=== PATIENT | female | born 1985 | race Caucasian/White ===

== ENCOUNTER 2024-07-18 20:49 | Emergency (ER) | payer OTHER, SELFPAY ==
[2024-07-18 20:53] VITALS: BP 127/83
[2024-07-18 21:26] LABS: % Basophils 0.9 % (0-2); % Eosinophils 2.8 % (0-6); % Immature Granulocytes 0.4 % (0-0.5); % Lymphocytes 25.3 % (20.5-51.1); % Monocytes 5.5 % (1.7-9.3); % Neutrophils 65.1 % (42.2-75.2); Absolute Basophils 0.1 10^3/uL (0-0.2); Absolute Eosinophils 0.3 10^3/uL (0-0.7); Absolute Lymphocytes 2.3 10^3/uL (1.2-3.4); Absolute Monocytes 0.5 10^3/uL (0.1-0.6); Absolute Neutrophils 5.8 10^3/uL (1.4-6.5); Hematocrit 38.9 % (37.0-47.0); Hemoglobin 13.3 g/dL (12.0-16.0); Mean Corp Hgb Conc. 34.2 g/dL (33.0-37.0); Mean Corpuscular Hgb 31.4 pg (27.0-31.0); Mean Corpuscular Volume 91.7 fL (81.0-99.0); Mean Platelet Volume 11.1 fL (7.4-10.4); Nucleated Red Blood Cells % 0 %; Platelet Count 218 10^3/uL (130-400); Red Blood Cell Count 4.24 10^6/uL (4.20-5.40); Red Cell Dist. Width 12.7 % (11.5-14.5); White Blood Cell Count 8.9 10^3/uL (4.8-10.8)
[2024-07-18 21:26] LABS: Urine Albumin Negative (Neg - Trace); Urine Bilirubin Negative (Negative); Urine Character Clear (Clear); Urine Color Yellow; Urine Glucose Negative (Negative); Urine Ketone Negative (Negative); Urine Leukocyte Negative (Negative); Urine Nitrite Negative (Negative); Urine Occult Blood Negative (Negative); Urine Specific Gravity 1.025 (<1.030); Urine Urobilinogen Negative (Neg - 1+)
[2024-07-18 21:42] LABS: ALT (SGPT) 15 U/L (0-35); AST (SGOT) 17 U/L (14-36); Albumin 4.4 g/dl (3.5-5.0); Alkaline Phosphatase 88 U/L (38-126); Blood Urea Nitrogen 9 mg/dl (7-17); Calcium 9.6 mg/dl (8.4-10.2); Carbon Dioxide 26 mmol/L (22-30); Chloride 106 mmol/L (98-107); Glucose 97 mg/dl (70-99); Potassium 4.2 mmol/L (3.5-5.1); Sodium 142 mmol/L (135-145); Total Bilirubin 0.3 mg/dl (0.2-1.3); Total Protein 6.8 g/dl (6.3-8.2); eGFR > 60.00
--- NOTE | 2024-07-18 22:58 | ED.GENMED ---
History of Present Illness
General
Chief Complaint: Abdominal Pain
Source: patient
Exam Limitations: none
Time Seen by Provider: 07/18/24 22:43
History of Present Illness
History of Present Illness:
This is a 39 year old female that comes in with c/o abd pain. States that she has right lower abd pain that started 2 days ago. States that she also feels like something is pinching in the right thigh. States that at first it felt like someone was
grabbing her hip. States that she is occasionally SOB, has a headache, dizziness, and has been nauseated on and off. Denies any fever, chills, chest pain, vomiting, diarrhea, urinary burning.
Past History
Past History
ED Past Medical History: GERD and Psychiatric (Anxiety)
ED Past Surgical History: Gynecological (Ovarian cyst) and Tonsilectomy
Social History
Tobacco: Former smoker
Alcohol: None
Drug: None
Personal:
Living: with family
Employment: Employed
Review of Systems
Review of Systems
All Other Systems: ROS reviewed and negative except as documented in HPI and ROS
Constitutional: Reports no symptoms; Denies fever or chills
EENT: Reports no symptoms
Respiratory: Reports trouble breathing (Occasional); Denies cough
Cardiac: Reports no symptoms; Denies chest pain
ABD/GI: Reports abdominal pain and nausea (on and off); Denies vomiting or diarrhea
: Reports no symptoms; Denies dysuria, frequency or urgency
Musculoskeletal: Reports no symptoms
Skin: Reports no symptoms
Neurological: Reports dizzy and headache
Psychiatric: Reports no symptoms
Phy Exam
General Physical Exam
General Presentation: well appearing and no apparent distress
General age: appears stated age
General Skin: warm and dry
General Habitus: normal
General Mental: alert
General Hydration: dry mucous membranes
ENT Exam
ENT Exam: TM's normal, pharynx normal and neck supple
Eye Exam
Eye Exam: EOMI
Cardiovascular Exam
Cardiovascular Exam: regular rate/rhythm, no edema, no murmur and normal peripheral pulses
Pulmonary Exam
Pulmonary Exam: lungs clear, no respiratory distress, no rales, chest non tender, no crackles, no rhonchi, no wheezing and no cough
Gastrointestinal Exam
Gastrointestinal Exam: normal bowel sounds, soft, no organomegaly, no pulsatile mass, non distended, tender (Right lower abd tenderness with palpation) and other (Obese)
Musculoskeletal Exam
Musculoskeletal Exam: full ROM and no edema
Skin Exam
Skin Exam: normal color, warm/dry, no rash, no petechia and other (Negative for any redness or swelling or the right leg)
Psychiatric Exam
Psychiatric Exam: normal mood/affect
Course
Orders/Labs/Results
Orders:
Orders
07/18/24 21:11
Complete Blood Count/With Diff Urgent
Comprehensive Metabolic Panel Urgent
HCG, Serum Qualitative Screen Urgent
Comment: ADD ON
07/18/24 21:16
UA Reflex to Culture [Urinalysis Reflex To Culture] Urgent
Date Specimen was Collected: 07/18/24
Time Specimen was Collected: 21:01
07/18/24 23:01
0.9% Sodium Chloride 500 ml [Nss] 500 ml IV BOLUS
07/18/24 23:02
Add On- LAB Urgent
Tests Added?: HCG
07/18/24 23:04
Add On- LAB Urgent
Tests Added?: HCG
07/19/24 00:05
CT Abd/pelvis W Iv Cont Urgent
Reason For Exam: Right sided abd pain
07/19/24 22:58
US Periph Venous LOWER Ext RT Urgent
Reason For Exam: Discomfort on the right medial thigh
07/19/24 23:02
US Pelvis Only (non-obstetric) Urgent
Reason For Exam: Right sided abd pain
Abnormal Lab Results
07/18/24
21:11
MCH 31.4 H pg
(27.0-31.0)
MPV 11.1 H fL
(7.4-10.4)
07/18/24 21:11
07/18/24 21:11
Labs unremarkable. Urine negative for infection or blood
Vital Signs
Initial and Last Documented VS:
Initial Vital Signs
Temp Pulse Resp BP Pulse Ox
97.6 F 76 16 127/83 97
07/18/24 20:53 07/18/24 20:53 07/18/24 20:53 07/18/24 20:53 07/18/24 20:53
Last Documented Vital Signs
Temp Pulse Resp BP Pulse Ox
97.6 F 76 16 127/83 97
07/18/24 20:53 07/18/24 20:53 07/18/24 20:53 07/18/24 20:53 07/18/24 20:53
MDM/Problems Addressed
Differential Diagnosis Includes:
Ovarian cyst, Appendicitis, Musculoskeletal
MDM/Problems Addressed:
This is a 39 year old female that comes in with c/o right sided lower abd pain. States that this started 2 days ago.
Will check labs. Urine, Pelvic ultrasound and CT abd. Will also give IV fluids.
Back into see patient. Explained that her US is negative for DVT. US of the pelvis is negative for any torsion or free fluid. CT of the abd/pelvis shows Cystitis but there is no other acute process. Explained to patient that she should stay away
from Caffeine as this is irritating to the bladder lining. She may also have pulled a groin muscle that may be causing her pain. Patient to follow up with the family doctor. Increase her water intake to 8-8oz glasses daily. Tylenol as needed for any
pain. Return with any concerns.
Chronic conditions affecting care:
NA
Acute Exacerbation and/or Progression of Chronic Illness:
NA
*Radiology
Radiology exam reviewed: radiology read reviewed (CT abd/pelvis night hawk- Mild bladder wall thickening, which may be due to cystitis. No hydronephrosis, nephrolithiasis or pyelonephritis. No bowel obstruction or inflammation. Appendix if normal.
NO free air or free fluid. Cholelithiasis. ) and other (US- No active torsion. No free fluid.. US- negative for DVT right leg)
*Pulse Oximetry
Patient hypoxic: no
*EKG
Interpreted by ED Provider?: NA
Rate: EKG- N/A
*Director Of Financial Planning Interpretation
Rate: Director Of Financial Planning- N/A
*Critical Care Note
Total Time (30-74mins, 75-104mins- exclusive of procedures): Not Applicable
ED Attending Note
-
Portions of this chart may have been created with voice recognition software.� Occasional wrong word or��sound alike� substitutions may have occurred due to the inherent limitations of voice recognition software.
Discharge Plan
Departure
Patient Disposition: Home (Routine Discharge)
Date of Disposition: 07/19/24
Time of Disposition: 02:43
Patient with high blood pressure during this ER visit?: No
Condition: Good
Covid-19: Not Applicable
Discharge Problem:
Cystitis
Instructions: Bladder Pain Syndrome (Interstitial Cystitis) (DC)
Prescriptions:
No Action
Zoloft
75 mg PO DAILY
Referrals:
Josefa Penn CRNP [Primary Care Provider] - Call in 1-3 days for appt
Activity Restrictions/Additional Instructions:
As discussed, your blood work is normal. Your Ultrasound of the pelvis is negative for any torsion or free fluid. Your Ultrasound of the right leg is negative for DVT and the CT scan of the abd/pelvis shows that you have Cystitis. Please stay away
from coffee or any Caffeine as this is irritating to the bladder lining and will continue to irritate the lining and cause pain. You may have also pulled a groin muscle that is causing your pain. Follow up with the family doctor for recheck. IF YOU
HAVE INCREASED OR CHANGING PAIN, OR YOU HAVE ANY OTHER CONCERNS PLEASE RETURN TO THE EMERGENCY ROOM.
Interventions
Interventions:
*Risk Screen - Suicide Last Done: 07/18/24 20:53
*General Assessment Last Done: 07/18/24 20:53
*Neglect/Abuse Screening Last Done: 07/18/24 20:53
ED- Fall Risk Assessment Last Done: 07/18/24 22:54
*ED COVID-19 Vaccine History Last Done: 07/18/24 20:53
PD-Stnblm-Jjgeocuyhw Assessment Last Done: 07/18/24 22:54
Discharge Date and Time
Print Language: TANZANIAN
[2024-07-18 22:59] VITALS: BMI 44.7
[2024-07-18 23:14] VITALS: BP 112/70
[2024-07-18] MEDS: NSS 500 IV (23:18)
[2024-07-18 23:31] LABS: HCG, Serum Qualitative Screen Negative
[2024-07-19 01:12] VITALS: BP 123/71
[2024-07-19 02:09] VITALS: BP 115/72
[2024-07-19 02:52] VITALS: BP 109/67
== END 2024-07-19 02:55 | disposition home or self-care (01) ==
LOC: EMR 20:49
PROVIDERS: Emergency Medicine; EMERGENCY PHYSICIAN Student in an Organized Health Care Education/Training Program; PRIMARYCARE PHYSICIAN Nurse Practitioner Family
DX: N30.90 Cystitis, unspecified without hematuria (principal); K21.9 Gastro-esophageal reflux disease without esophagitis; Z87.891 Personal history of nicotine dependence
CPT/HCPCS: 96360; 99284; 74177; 76856; 80053; 81003; 84703; 85025; 93971; Q9967

== ENCOUNTER → 2024-10-29 11:15 | Outpatient (REF) | payer OTHER, SELFPAY | LOC: PNTC 11:15 | PROVIDERS: ATTENDING PHYSICIAN Obstetrics & Gynecology | DX: O99.210 Obesity complicating pregnancy, unspecified trimester (principal); O09.529 Supervision of elderly multigravida, unspecified trimester | CPT/HCPCS: 76801; 76813 ==

== ENCOUNTER → 2024-11-20 11:40 | Outpatient (REF) | payer OTHER, SELFPAY | LOC: PNTC 11:40 | PROVIDERS: ATTENDING PHYSICIAN Obstetrics & Gynecology | DX: O99.212 Obesity complicating pregnancy, second trimester (principal); O09.522 Supervision of elderly multigravida, second trimester | CPT/HCPCS: 36415; 76805 ==

== ENCOUNTER → 2024-12-18 15:10 | Outpatient (REF) | payer OTHER, SELFPAY | LOC: PNTC 15:10 | PROVIDERS: ATTENDING PHYSICIAN Obstetrics & Gynecology | DX: O99.210 Obesity complicating pregnancy, unspecified trimester (principal); O09.529 Supervision of elderly multigravida, unspecified trimester | CPT/HCPCS: 76811; 76817 ==

== ENCOUNTER → 2025-01-02 15:02 | Outpatient (REF) | payer OTHER, SELFPAY | LOC: PNTC 15:02 | PROVIDERS: ATTENDING PHYSICIAN Student in an Organized Health Care Education/Training Program | DX: O99.210 Obesity complicating pregnancy, unspecified trimester (principal); O09.529 Supervision of elderly multigravida, unspecified trimester; O99.320 Drug use complicating pregnancy, unspecified trimester | CPT/HCPCS: 76815 ==

== ENCOUNTER → 2025-01-15 15:00 | Outpatient (REF) | payer OTHER, SELFPAY | LOC: PNTC 15:00 | PROVIDERS: ATTENDING PHYSICIAN Student in an Organized Health Care Education/Training Program | DX: O99.210 Obesity complicating pregnancy, unspecified trimester (principal); O09.529 Supervision of elderly multigravida, unspecified trimester; O35.8XX0 Maternal care for other (suspected) fetal abnormality and damage, not applicable or unspecified; O99.320 Drug use complicating pregnancy, unspecified trimester | CPT/HCPCS: 76816 ==

== ENCOUNTER → 2025-02-10 16:01 | Outpatient (REF) | payer OTHER, SELFPAY | LOC: PNTC 16:01 | PROVIDERS: ATTENDING PHYSICIAN Student in an Organized Health Care Education/Training Program | DX: O09.529 Supervision of elderly multigravida, unspecified trimester (principal); O99.210 Obesity complicating pregnancy, unspecified trimester | CPT/HCPCS: 76816 ==

== ENCOUNTER 2025-02-21 18:29 | Observation (INO) | payer OTHER, SELFPAY ==
[2025-02-21 18:42] VITALS: BP 121/86; BMI 44.9
[2025-02-21 19:03] LABS: Urine Albumin 1+ (Neg - Trace); Urine Bilirubin Negative (Negative); Urine Character Clear (Clear); Urine Color Yellow; Urine Glucose Negative (Negative); Urine Ketone Negative (Negative); Urine Leukocyte 2+ (Negative); Urine Nitrite Negative (Negative); Urine Occult Blood Negative (Negative); Urine Specific Gravity 1.015 (<1.030); Urine Urobilinogen Negative (Neg - 1+)
[2025-02-21 19:18] LABS: Urine Amorphous Seen
[2025-02-21 19:19] LABS: Urine Red Blood Cell 0-2 /HPF (0-2)
[2025-02-21 19:20] LABS: Urine Bacteria Few (Negative)
== END 2025-02-21 20:07 | disposition home or self-care (01) ==
LOC: LDRP 18:29
PROVIDERS: ADMITTING PHYSICIAN Obstetrics & Gynecology
DX: O26.893 Other specified pregnancy related conditions, third trimester (principal); Z3A.29 29 weeks gestation of pregnancy; R10.9 Unspecified abdominal pain; M25.552 Pain in left hip; M25.551 Pain in right hip; O99.343 Other mental disorders complicating pregnancy, third trimester; F32.A Depression, unspecified; F41.9 Anxiety disorder, unspecified; O09.523 Supervision of elderly multigravida, third trimester; O99.213 Obesity complicating pregnancy, third trimester; Z91.040 Latex allergy status; Z86.14 Personal history of Methicillin resistant Staphylococcus aureus infection
CPT/HCPCS: 59899; 81003; 81015; G0378

== ENCOUNTER → 2025-03-10 13:46 | Outpatient (REF) | payer OTHER, SELFPAY | LOC: PNTC 13:46 | PROVIDERS: ATTENDING PHYSICIAN Student in an Organized Health Care Education/Training Program | DX: O09.529 Supervision of elderly multigravida, unspecified trimester (principal); O99.210 Obesity complicating pregnancy, unspecified trimester | CPT/HCPCS: 76816 ==

== ENCOUNTER 2025-03-21 14:24 | Observation (INO) | payer OTHER, SELFPAY ==
[2025-03-21 14:43] VITALS: BP 104/59; BMI 46.9
[2025-03-21] MEDS: TYLENOL #3 1 TABLET PO (15:08)
[2025-03-21 16:33] LABS: Hematocrit 34.2 % (37.0-47.0); Hemoglobin 11.9 g/dL (12.0-16.0); Mean Corp Hgb Conc. 34.8 g/dL (33.0-37.0); Mean Corpuscular Volume 95.0 fL (81.0-99.0); Platelet Count 218 10^3/uL (130-400); Red Cell Dist. Width 13.4 % (11.5-14.5)
[2025-03-21] MEDS: BENADRYL 50 MG IV (16:37)
[2025-03-21] MEDS: FLUSH (NSS) 1 FLUSH IV (16:38)
[2025-03-21 16:46] LABS: ALT (SGPT) 11 U/L (0-35); AST (SGOT) 14 U/L (14-36); Albumin 3.6 g/dl (3.5-5.0); Alkaline Phosphatase 112 U/L (38-126); Blood Urea Nitrogen 6 mg/dl (7-17); Calcium 9.2 mg/dl (8.4-10.2); Carbon Dioxide 18 mmol/L (22-30); Chloride 112 mmol/L (98-107); Estimated Creatinine Clearance > 125 ml/min; Glucose 104 mg/dl (70-99); Potassium 4.0 mmol/L (3.5-5.1); Sodium 136 mmol/L (135-145); Total Protein 6.1 g/dl (6.3-8.2); eGFR > 60.00
== END 2025-03-22 00:48 | disposition home or self-care (01) ==
LOC: LDRP 14:24
PROVIDERS: ADMITTING PHYSICIAN Student in an Organized Health Care Education/Training Program
DX: O99.353 Diseases of the nervous system complicating pregnancy, third trimester (principal); G43.909 Migraine, unspecified, not intractable, without status migrainosus; Z3A.33 33 weeks gestation of pregnancy
CPT/HCPCS: 80053; 82570; 84156; 85027; G0378

== ENCOUNTER 2025-03-26 18:51 | Observation (INO) | payer OTHER, SELFPAY ==
[2025-03-26 19:06] VITALS: BMI 45.8
[2025-03-26 19:17] VITALS: BP 113/54
== END 2025-03-26 20:25 | disposition home or self-care (01) ==
LOC: LDRP 18:51
PROVIDERS: ADMITTING PHYSICIAN Obstetrics & Gynecology
DX: O36.8130 Decreased fetal movements, third trimester, not applicable or unspecified (principal); O99.343 Other mental disorders complicating pregnancy, third trimester; F41.9 Anxiety disorder, unspecified; F32.A Depression, unspecified; Z3A.34 34 weeks gestation of pregnancy
CPT/HCPCS: G0378

== ENCOUNTER → 2025-03-27 14:20 | Outpatient (REF) | payer OTHER, SELFPAY | LOC: PNTC 14:20 | PROVIDERS: ATTENDING PHYSICIAN Student in an Organized Health Care Education/Training Program | DX: O99.210 Obesity complicating pregnancy, unspecified trimester (principal); O09.529 Supervision of elderly multigravida, unspecified trimester | CPT/HCPCS: 59025 ==

== ENCOUNTER → 2025-04-03 13:44 | Outpatient (REF) | payer OTHER, SELFPAY | LOC: PNTC 13:44 | PROVIDERS: ATTENDING PHYSICIAN Student in an Organized Health Care Education/Training Program | DX: O99.210 Obesity complicating pregnancy, unspecified trimester (principal); O09.529 Supervision of elderly multigravida, unspecified trimester | CPT/HCPCS: 59025; 76816 ==

== ENCOUNTER → 2025-04-10 13:43 | Outpatient (REF) | payer OTHER, SELFPAY | LOC: PNTC 13:43 | PROVIDERS: ATTENDING PHYSICIAN Student in an Organized Health Care Education/Training Program | DX: O09.529 Supervision of elderly multigravida, unspecified trimester (principal); O99.210 Obesity complicating pregnancy, unspecified trimester | CPT/HCPCS: 59025; 76815 ==

== ENCOUNTER → 2025-04-17 13:54 | Outpatient (REF) | payer OTHER, SELFPAY | LOC: PNTC 13:54 | PROVIDERS: ATTENDING PHYSICIAN Student in an Organized Health Care Education/Training Program | DX: O09.529 Supervision of elderly multigravida, unspecified trimester (principal); O99.210 Obesity complicating pregnancy, unspecified trimester | CPT/HCPCS: 59025; 76815 ==

== ENCOUNTER 2025-04-23 16:44 | Observation (INO) | payer OTHER, SELFPAY ==
[2025-04-23 16:54] VITALS: BP 118/82; BMI 46.7
== END 2025-04-23 17:42 | disposition home or self-care (01) ==
LOC: LDRP 16:44
PROVIDERS: ADMITTING PHYSICIAN Student in an Organized Health Care Education/Training Program; FAMILY PHYSICIAN Obstetrics & Gynecology
DX: O36.8130 Decreased fetal movements, third trimester, not applicable or unspecified (principal); Z3A.38 38 weeks gestation of pregnancy; M54.9 Dorsalgia, unspecified; O09.523 Supervision of elderly multigravida, third trimester; O99.343 Other mental disorders complicating pregnancy, third trimester; M25.552 Pain in left hip; Z91.040 Latex allergy status; Z86.14 Personal history of Methicillin resistant Staphylococcus aureus infection; Z79.82 Long term (current) use of aspirin
CPT/HCPCS: 59025; G0378

== ENCOUNTER → 2025-04-24 13:41 | Outpatient (REF) | payer OTHER, SELFPAY | LOC: PNTC 13:41 | PROVIDERS: ATTENDING PHYSICIAN Student in an Organized Health Care Education/Training Program | DX: O09.529 Supervision of elderly multigravida, unspecified trimester (principal); O99.210 Obesity complicating pregnancy, unspecified trimester | CPT/HCPCS: 59025; 76815 ==

== ENCOUNTER → 2025-05-01 13:40 | Outpatient (REF) | payer OTHER, SELFPAY | LOC: PNTC 13:40 | PROVIDERS: ATTENDING PHYSICIAN Student in an Organized Health Care Education/Training Program | DX: O99.210 Obesity complicating pregnancy, unspecified trimester (principal); O09.529 Supervision of elderly multigravida, unspecified trimester | CPT/HCPCS: 59025; 76816 ==

== ENCOUNTER 2025-05-01 19:37 | Inpatient (IN) | payer OTHER, SELFPAY ==
[2025-05-01 19:57] VITALS: BP 128/82; BMI 43.0
[2025-05-01 20:04] LABS: Hematocrit 34.2 % (37.0-47.0); Hemoglobin 11.7 g/dL (12.0-16.0); Mean Corp Hgb Conc. 34.2 g/dL (33.0-37.0); Mean Corpuscular Volume 92.7 fL (81.0-99.0); Nucleated Red Blood Cells % 0 %; Platelet Count 245 10^3/uL (130-400); Red Cell Dist. Width 13.2 % (11.5-14.5)
[2025-05-01] MEDS: CYTOTEC 50 MICROGRAM VAG (20:13)
[2025-05-01] MEDS: LR 1000 IV (21:54)
[2025-05-01] MEDS: ZOLOFT 75 MG PO (21:57)
[2025-05-01] MEDS: STADOL 1 MG IV (22:09)
[2025-05-02] MEDS: STADOL 1 MG IV (00:59)
[2025-05-02] MEDS: TYLENOL 650 MG PO ×2 (03:19→20:01)
[2025-05-02] MEDS: ZOFRAN 4 MG IV (03:20)
[2025-05-02] MEDS: PENICILLIN 110 UNITS IV (09:50)
[2025-05-02] MEDS: PITOCIN 30 UNITS/NSS 500 ML IV (10:15)
[2025-05-02] MEDS: LR 1000 IV ×2 (11:37→21:38)
[2025-05-02] MEDS: PENICILLIN 55 UNITS IV ×3 (13:58→21:39)
[2025-05-02] MEDS: ZOLOFT 75 MG PO (20:01)
[2025-05-02] MEDS: SUBLIMAZE 100 MCG EPIDURAL (21:54)
[2025-05-02] MEDS: FENTANYL/BUPIVACAINE 100 EPIDURAL (21:54)
[2025-05-03] MEDS: PENICILLIN 55 UNITS IV ×2 (02:11→06:04)
[2025-05-03] MEDS: ZOFRAN 4 MG IV (04:26)
[2025-05-03] MEDS: FENTANYL/BUPIVACAINE 100 EPIDURAL (06:26)
[2025-05-03] MEDS: SILVER NITRATE APPLICATOR 1 EACH TOPICAL (08:50)
[2025-05-03] MEDS: PITOCIN 30 UNITS/NSS 500 ML IV (08:51)
[2025-05-03] MEDS: POLYSPORIN/DOUBLE ANTIBIOTIC 1 APPLIC TOPICAL ×2 (11:19→20:03)
[2025-05-03] MEDS: MOTRIN 600 MG PO ×2 (15:10→21:23)
[2025-05-03] MEDS: TYLENOL 650 MG PO ×2 (15:10→21:24)
[2025-05-03] MEDS: COLACE 100 MG PO (20:02)
[2025-05-03] MEDS: PRENATAL PLUS 1 TABLET PO (22:00)
[2025-05-03] MEDS: ZOLOFT 75 MG PO (22:00)
[2025-05-04] MEDS: TYLENOL 650 MG PO ×3 (03:59→19:37)
[2025-05-04] MEDS: MOTRIN 600 MG PO ×3 (03:59→19:37)
[2025-05-04 04:30] LABS: Hematocrit 36.0 % (37.0-47.0); Hemoglobin 12.2 g/dL (12.0-16.0)
[2025-05-04] MEDS: COLACE 100 MG PO ×2 (08:38→19:37)
[2025-05-04] MEDS: POLYSPORIN/DOUBLE ANTIBIOTIC 1 APPLIC TOPICAL ×2 (08:38→19:38)
[2025-05-04] MEDS: PROCARDIA XL (EXTENDED RELEASE) 30 MG PO (18:09)
[2025-05-04 18:15] LABS: Hematocrit 32.5 % (37.0-47.0); Hemoglobin 11.2 g/dL (12.0-16.0); Mean Corp Hgb Conc. 34.5 g/dL (33.0-37.0); Mean Corpuscular Volume 91.3 fL (81.0-99.0); Platelet Count 212 10^3/uL (130-400); Red Cell Dist. Width 13.1 % (11.5-14.5)
[2025-05-04 18:35] LABS: ALT (SGPT) 14 U/L (0-35); AST (SGOT) 20 U/L (14-36); Albumin 3.1 g/dl (3.5-5.0); Alkaline Phosphatase 129 U/L (38-126); Blood Urea Nitrogen 11 mg/dl (7-17); Calcium 9.5 mg/dl (8.4-10.2); Carbon Dioxide 23 mmol/L (22-30); Chloride 111 mmol/L (98-107); Estimated Creatinine Clearance > 125 ml/min; Glucose 92 mg/dl (70-99); Potassium 4.2 mmol/L (3.5-5.1); Sodium 136 mmol/L (135-145); Total Protein 5.8 g/dl (6.3-8.2); eGFR > 60.00
[2025-05-04] MEDS: PRENATAL PLUS 1 TABLET PO (22:05)
[2025-05-04] MEDS: ZOLOFT 75 MG PO (22:05)
[2025-05-05] MEDS: MOTRIN 600 MG PO ×2 (03:14→08:50)
[2025-05-05] MEDS: TYLENOL 650 MG PO ×2 (03:15→08:50)
[2025-05-05] MEDS: COLACE 100 MG PO (07:42)
[2025-05-05] MEDS: PROCARDIA XL (EXTENDED RELEASE) 30 MG PO (08:47)
[2025-05-05] MEDS: POLYSPORIN/DOUBLE ANTIBIOTIC 1 APPLIC TOPICAL (08:47)
== END 2025-05-05 10:38 | disposition home or self-care (01) | DRG 807 ==
LOC: LDRP 19:37
PROVIDERS: Obstetrics & Gynecology; ADMITTING PHYSICIAN Obstetrics & Gynecology
PROC: 3E0P7VZ Introduction of Hormone into Female Reproductive, Via Natural or Artificial Opening (ICD-10-PCS; 2025-05-01)
PROC: 0HQ9XZZ Repair Perineum Skin, External Approach (ICD-10-PCS; 2025-05-03)
PROC: 10E0XZZ Delivery of Products of Conception, External Approach (ICD-10-PCS; 2025-05-03)
DX: O99.824 Streptococcus B carrier state complicating childbirth (principal); Z37.0 Single live birth; Z3A.39 39 weeks gestation of pregnancy; O70.0 First degree perineal laceration during delivery
CPT/HCPCS: 36415; 80053; 85014; 85018; 85025; 85027; 86780; 86850; 86900; 86901; 88304

== ENCOUNTER 2025-05-06 16:28 | Observation (INO) | payer OTHER, SELFPAY ==
[2025-05-06 16:59] VITALS: BP 149/81; BMI 48.5
[2025-05-06 17:39] LABS: Urine Character Clear (Clear)
[2025-05-06 17:42] LABS: Hematocrit 33.5 % (37.0-47.0); Hemoglobin 11.2 g/dL (12.0-16.0); Mean Corp Hgb Conc. 33.4 g/dL (33.0-37.0); Mean Corpuscular Volume 94.1 fL (81.0-99.0); Platelet Count 235 10^3/uL (130-400); Red Cell Dist. Width 13.0 % (11.5-14.5)
[2025-05-06 17:46] LABS: Urine Squamous Cell >30 /LPF (Few)
[2025-05-06 17:47] LABS: ALT (SGPT) 16 U/L (0-35); AST (SGOT) 19 U/L (14-36); Albumin 3.6 g/dl (3.5-5.0); Alkaline Phosphatase 117 U/L (38-126); Blood Urea Nitrogen 11 mg/dl (7-17); Calcium 9.2 mg/dl (8.4-10.2); Carbon Dioxide 20 mmol/L (22-30); Chloride 109 mmol/L (98-107); Estimated Creatinine Clearance > 125 ml/min; Glucose 96 mg/dl (70-99); Potassium 4.0 mmol/L (3.5-5.1); Sodium 136 mmol/L (135-145); Total Protein 6.1 g/dl (6.3-8.2); Urine Red Blood Cell 30-40 /HPF (0-2); eGFR > 60.00
== END 2025-05-06 19:55 | disposition home or self-care (01) ==
LOC: LDRP 16:28
PROVIDERS: ADMITTING PHYSICIAN Obstetrics & Gynecology
DX: O13.5 Gestational [pregnancy-induced] hypertension without significant proteinuria, complicating the puerperium (principal); H53.9 Unspecified visual disturbance; O90.89 Other complications of the puerperium, not elsewhere classified; R51.9 Headache, unspecified; Z91.040 Latex allergy status; Z86.14 Personal history of Methicillin resistant Staphylococcus aureus infection
CPT/HCPCS: 80053; 81003; 81015; 82570; 84156; 85027; G0378